=== PATIENT | female | born 1985 | race American Indian/Alaskan Native ===

== ENCOUNTER 2017-07-30 07:09 | Day surgery (SDC) | payer MEDICAID ==
--- NOTE | 2017-07-30 08:18 | Anesthesia Consultation ---
Anesthesia Consult and Med Hx Date of service: 07/30/17 - Airway Anesthetic Teeth Evaluation: Edentulous (upper) ROM Head & Neck: Adequate Mental/Hyoid Distance: Adequate Mallampati Class: Class I Intubation Access Assessment: Good - Pulmonary Exam CTA: Yes - Cardiac Exam Cardiac Exam: RRR - Pre-Operative Health Status ASA Pre-Surgery Classification: ASA3 Proposed Anesthetic Plan: General - Cardiovascular System Hx Hypertension: Yes - Other Systems Hx Obesity: Yes
--- NOTE | 2017-07-30 08:19 | Anesthesia Day of Surgery ---
Anesthesia Day of Surgery - Day of Surgery Patient Examined: Yes Patient H&P Reviewed: Yes Patient is NPO: Yes
[2017-07-30] MEDS ORDERED: XYLOCAINE MPF 2% ONE (08:39)
[2017-07-30] MEDS ORDERED: DIPRIVAN 10 MG/ML IV ONE (08:39)
[2017-07-30] MEDS ORDERED: ZOFRAN ONE (08:39)
[2017-07-30] MEDS ORDERED: SUBLIMAZE ONE (08:40)
[2017-07-30] MEDS ORDERED: DILAUDID ONE (08:41)
[2017-07-30] MEDS ORDERED: GARAMYCIN IV SCH (08:45)
[2017-07-30] MEDS ORDERED: NACL 0.9% IR ONE ×2 (08:50)
--- NOTE | 2017-07-30 08:50 | Short Stay Summary ---
Short Stay Documentation Date of service: 07/30/17 Narrative H&P: Pt is a 32yo BF LMP 07/23/17 presents for surgical evaluation and treatment of a retained IUD. She has had the IUD in place for 5 years, and an attempt to remove it in the office was unsuccessful. She is therefore scheduled for a Hysteroscopic retrieval of a retained IUD. - History Principal diagnosis: Retained IUD H&P: obtained from office Past Medical History: hypertension Past Surgical History: Social history: no significant social history, single - Allergies and Medications Current Medications: Allergies fluconazole [From Diflucan] Allergy (Verified 07/22/17 15:02) Swelling PT STATES SHE ALSO GETS HIVES Penicillins Allergy (Verified 07/22/17 15:02) Swelling PT STATES SHE ALSO GETS HIVES yana Allergy (Verified 07/22/17 15:02) Swelling PT STATES SHE ALSO GETS HIVES. Home Medications Medication Instructions Recorded Confirmed Last Taken Type Naproxen Sodium [Aleve TAB] 220 mg PO Q8H PRN 07/22/17 07/22/17 Unknown History amLODIPine [Norvasc] 10 mg PO DAILY 07/22/17 07/22/17 Unknown History Active Medications Famotidine (Pepcid) 20 mg PO PREOP NR Stop: 07/30/17 15:00 Sodium Chloride (Nacl 0.9% 1000 Ml) 1,000 mls @ 42 mls/hr IV DIRECT VIKTOR Midazolam HCl (Versed) 2 mg IV PREOP NR Stop: 07/30/17 23:59 - Physical exam General appearance: no acute distress Integumentary: no rash HEENT: Atraumatic Lungs: Clear to auscultation Breasts: deferred Heart: Regular rate Gastrointestinal: normal Female Genitourinary: deferred Rectal Exam: deferred Extremities: No edema Neurological: Normal gait, Normal speech - Brief post op/procedure progress note Date of procedure: 07/30/17 Pre-op diagnosis: Retained IUD Post-op diagnosis: same Procedure: Hysteroscopic retrieval of retained IUD Anesthesia: MAC Findings: Normal uterine cavity. IUD removed successfully. Surgeon: LISANDRO SY Estimated blood loss: minimal Pathology: list (IUD) Specimen disposition: to lab Condition: stable - Hospital course Hospital course: Unremarkable. - Disposition Condition at discharge: Good Disposition: DC-01 TO HOME OR SELFCARE - Discharge Diagnoses (1) Malpositioned intrauterine device (IUD) Status: Resolved Qualifiers: Encounter type: subsequent encounter Qualified Code(s): T83.32XD - Displacement of intrauterine contraceptive device, subsequent encounter Short Stay Discharge Plan Activity: no restrictions Diet: regular Follow up with: PRIMARY CARE, [Primary Care Provider] - 7 Days LISANDRO SY MD [Staff Physician] - 14 Days Prescriptions: HYDROcodone/APAP 5-325 [[place] 5/325] 1 each PO Q6HR PRN #20 tablet PRN Reason: Pain
[2017-07-30] MEDS ORDERED: GARAMYCIN 200 MG in NACL 0.9% 100 ML IV NR (09:00)
[2017-07-30] MEDS ORDERED: VERSED IV NR (09:00)
[2017-07-30] MEDS ORDERED: PEPCID PO NR (09:00)
[2017-07-30] MEDS ORDERED: CLEOCIN 600 MG/50 mL 600 MG/50 ML BAG IV NR (09:00)
[2017-07-30] MEDS ORDERED: NACL 0.9% 1000 ML 1,000 ML IV SCH (09:00)
[2017-07-30] MEDS ORDERED: TORADOL ONE (09:42)
--- NOTE | 2017-07-30 09:56 | Operative Report ---
Operative Report Operative Report: Date of procedure: 07/30/2017 Pre-operative diagnosis: Malpositioned IUD Post-operative diagnosis: Same Procedure name(s): Hysteroscopic retrieval of malpositioned IUD Surgeon: Bryan Murdock MD Mix House Tender: None Anesthesia: Gen. mask by Dr. Wade EBL: 10 mL's Findings: Normal uterine cavity. Successful retrieval of malpositioned IUD Procedure: After the patient was correctly identified, she was prepped and draped in the usual sterile fashion and placed in the dorsolithotomy position. First the bladder was emptied using a straight catheter, and the speculum was placed in the vaginal vault and the anterior lip of the cervix was grasped using single-tooth tenaculum. Part of the IUD was visualized and grasped using ring forceps, and removed with moderate amounts of effort. The hysteroscope was introduced into the uterine cavity, and normal uterine cavity was visualized. At this point the procedure was considered complete. All instruments removed from the vagina. The patient tolerated the procedure well and was transferred to recovery room in stable condition.
[2017-07-30] MEDS ORDERED: GARAMYCIN/NS 120MG/100ML 120 MG/100 ML BAG IV ONE (09:58)
[2017-07-30] MEDS ORDERED: GARAMYCIN/NS 80 MG/100 ML 100 ML IV ONE (10:01)
[2017-07-30] MEDS ORDERED: NORCO 5/325 PO ONE (12:00)
--- NOTE | 2017-07-30 13:05 | Post Anesthesia Evaluation ---
- Post Anesthesia Evaluation Patient Participated: Yes Airway Patent: Yes Stable Respiratory Function: Yes Nausea/Vomiting: No Temp > 96.8F: Yes Pain Manageable: Yes Adequeate Hydration: Yes Anesthesia Complications: No Block Receding Appropriately: Not Applicable Patient on Ventilator: No
[2017-07-30 14:30] VITALS: BP 111/69
== END 2017-07-30 12:15 | disposition home or self-care (01) ==
LOC: OR 07:09
PROVIDERS: ATTEND Obstetrics & Gynecology
DX: T83.32XA Displacement of intrauterine contraceptive device, initial encounter (principal); Y76.3 Surgical instruments, materials and obstetric and gynecological devices (including sutures) associated with adverse incidents; I10 Essential (primary) hypertension; E66.9 Obesity, unspecified; Z88.0 Allergy status to penicillin; Z88.8 Allergy status to other drugs, medicaments and biological substances
CPT/HCPCS: 36415; 58562; 81025; 85014; 85018; 88300; A4217; J1580; J1885; J2250; J2405; J2704; J3010; J7030; 88302; J1170